=== PATIENT | female | born 2005 | race Caucasian/White ===

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

== ENCOUNTER 2024-10-19 21:31 | Emergency (ER) | payer SELFPAY ==
[2024-10-19] MEDS: Sodium Chloride 0.9% 1,000 ML IV STA (22:10)
[2024-10-19] MEDS: Ketorolac 30 MG/ML SDV IVPUSH ONE (22:11)
[2024-10-19] MEDS: cefTRIAXone 2 GM Vial IVPUSH ONE (22:12)
[2024-10-19] MEDS: diphenhydrAMINE 50 MG/ML SDV IVPUSH ONE (22:29)
[2024-10-19] MEDS: Dexamethasone 4 MG/ML SDV IVPUSH ONE (22:33)
[2024-10-19] MEDS: Acetaminophen 325 MG/10.15 ML PO ONE (22:34)
[2024-10-19] MEDS: diphenhydrAMINE 50 MG/ML SDV ONE (22:35)
== END 2024-10-19 23:20 | disposition home or self-care (01) ==
LOC: JD.ED 21:31
DX: J02.0 Streptococcal pharyngitis (principal); Z88.8 Allergy status to other drugs, medicaments and biological substances; Z79.899 Other long term (current) drug therapy
CPT/HCPCS: 96361; 96374; 96375; 99283; A9270; J0696; J1100; J1200; J1885; J7030